=== PATIENT | female | born 1975 | race Caucasian/White ===

== ENCOUNTER 2025-04-20 09:23 | Outpatient (AMB) | payer SELFPAY ==
--- NOTE | 2025-04-20 09:38 | MHC.OFFVIS ---
Intake Visit Reasons: Follow Up Allergies No Known Allergies Allergy (Verified 02/24/25 16:30) Medication List - Last Reconciled 04/20/25 by Danny Hernandes MD bupropion HCl XL 150 mg PO DAILY escitalopram oxalate 20 mg PO DAILY propranolol 60 mg PO BID 90 days HPI Comments Details: ?50 yr old woman with h/o benign essential tremors for many years. Her tremors are under control. Doing very well with no limitations and no side effects. No functional impairment. NO side effects. History of onset of hand tremors around age 9 that have been slowly getting worse over the years. The tremors are increased by anxiety. She has had thyroid profile which was normal. ?She is also treated for depression and anxiety and panic attacks. She has been tried on stimulants for possible ADD without improvement. [facility] Medical History (Updated 04/20/25 @ 09:41 by Danny Hernandes MD) Anxiety Depression Benign essential tremor Review of Systems Const Details: Sleep:? Difficulty getting to sleep?denies.? Difficulty maintaining sleep?denies?.? Urge to move legs?denies.? Teeth grinding?denies.? Shouting or Kicking during sleep?denies.? Abnormal behavior during sleep?denies.? Excessive sleep?denies.? Snoring?denies.? Daytime sleepiness?denies.? ?? General/Constitutional:? Change in appetite?denies.? Chills?denies.? Fatigue?denies.? Fever?denies.? Weight gain?denies.? Weight loss?denies.? ?? Ophthalmologic:? Blurred vision?denies.? Diminished visual acuity?denies.? ?? ENT:? Stuffiness?denies.? Decreased hearing?denies.? Dry mouth?denies.? Ear pain?denies.? Nosebleed?denies.? Ringing in the ears?denies.? Sinus pain?denies.? Sore throat?denies.? Swollen glands?denies.? ?? Endocrine:? Cold intolerance?denies.? Excessive thirst?denies.? Frequent urination?denies.? Heat intolerance?denies.? ?? Respiratory:? Shortness of breath?denies.? Chest pain?denies.? Cough?denies.? ?? Breast:? Breast lump?denies.? Nipple discharge?denies.? ?? Cardiovascular:? Chest pain at rest?denies.? Chest pain with exertion?denies.? Claudication?denies.? Dizziness?denies.? Fluid accumulation in the legs?denies.? Irregular heartbeat?denies.? Palpitations?denies.? ?? Gastrointestinal:? Abdominal pain?denies.? Constipation?denies.? Diarrhea?denies.? Difficulty swallowing?denies.? Heartburn?denies.? Nausea?denies.? Rectal bleeding?denies.? ?? Hematology:? Easy bruising?denies.? Prolonged bleeding?denies.? ?? Genitourinary:? Frequent urination?denies.? Urgency?denies.? Incontinence?denies.? Erectile Dysfunction?denies.? ?? Musculoskeletal:? Neck pain?denies.? Back pain?denies.? Muscle aches?denies.? Painful joints?denies.? Sciatica?denies.? Weakness?denies.? ?? Podiatric:? Difficulty walking?denies.? Foot numbness?denies.? ?? Neurologic:? Difficulty swallowing?denies.? Balance difficulty?denies.? Coordination?normal.? Difficulty speaking?denies.? Dizziness?denies.? Fainting?denies.? Gait abnormality?denies.? Headache?denies.? Loss of strength?denies.? Loss of use of extremity?denies.? Low back pain?denies.? Memory loss?denies.? Seizures?denies.? Tics?denies.? Tingling/Numbness?denies.? Transient loss of vision?denies.? Tremor?admits.? ?? Psychiatric:? Anxiety?denies.? Auditory/visual hallucinations?denies.? Delusions?denies.? Depressed mood?denies.? Stressors?denies.? Substance abuse?denies.? Suicidal thoughts?denies.? ?? Physical Exam Neuro Other: Neurological: ? Abnormal neurological findings:?Minimal tremors of the extended upper extremities on sustained posture and finger to nose L>R..? Mental Status:?alert and oriented X 3,?Normal attention, orientation, memory and affect.? Cranial Nerves:?Pupils are equal, round and reactive to light. Fundoscopy shows normal disc bilaterally. External occular muscles are intact. Visual lunsford are full, no ptosis. Face is symmetrical, no facial weakness or droop. Facial sensations are normal. Tongue protrudes in midline. Palate elevates symmetrically. Shoulder shrugging is normal..? Motor Examination:?Normal muscle tone, bulk and strength,?No atrophy or fasciculations,?No drift of the extended upper extremities,?Deep tendon reflexes are 2+?,?Plantars are flexor?.? Straight Leg Raising:?90 degrees.? Sensory Exam:?Normal light touch, temperature, pinprick, vibration and joint-position sensations?,?Rhomberg sign is absent.? Coordination:?no ataxia,?no titubation,?[id number], [id number] test and rapid alternating movements were normal.? Gait Exam:?Within normal limits.? Cerebellar Signs:?[id number] and ihtk-[id number] is normal,?no dysdiadochokinesia?.? Extrapyramidal System:?No tremor, rigidity with normal facial expressions,?No bradykinesia, no bradyphrenia. Normal arm swing and posture. No propulsion or retropulsion.? Speech:?Normal,?no dysphasia or dysarthria..? Mini Mental Status Exam: ? Level of Consciousness:?Alert.? Orientation:?Knows correct year, month, date, day and season,?Knows correct city, county and state. Knows correct location and floor.? Registration:?Able to register 3 objects.? Attention:?Serial 7's performed accurately.? Recall:?Able to recall 3 out of 3 objects.? Language:?Normal spontaneous speech, fluency, repetition,naming, comprehension, reading and writing.? Total Score ?30/30.? General Examination: ? GENERAL APPEARANCE:?normal,?in no acute distress.? HEAD:?normocephalic,?atraumatic.? EYES:?sclera non-icteric,?conjunctiva clear.? EARS:?auditory canal clear,?tympanic membrane intact, clear.? NOSE:?no lesions.? ORAL CAVITY:?gums normal,?mucosa moist,?no lesions.? THROAT:?clear.? NECK/THYROID:?no cervical lymphadenopathy,?thyroid normal,?neck supple, full range of motion,?no carotid bruit.? SKIN:?no rashes,?no significant birthmarks.? HEART:?S1, S2 normal,?no murmurs.? LUNGS:?clear anteriorly and posteriorly.? CHEST:?no gross rib deformity,?clear to auscultation.? BACK:?normal exam of spine.? EXTREMITIES:?no edema.? PERIPHERAL PULSES:?normal.? PSYCH:?alert, oriented,?cognitive function intact,?cooperative with exam.? Assessment & Plan Assessment & Plan (1) Benign essential tremor: Code(s): G25.0 - Essential tremor Category: Medical (2) Anxiety: Code(s): F41.9 - Anxiety disorder, unspecified Category: Medical (3) Depression: Code(s): F32.A - Depression, unspecified Category: Medical Plan Continue current meds Medications: Refilled propranolol 60 mg PO BID 180 tabs 3RF 90 days Coding Level of Care Code Est Pt Level 4 (45891) Diagnoses Benign essential tremor G25.0 Anxiety F41.9 Depression F32.A
== END 2025-04-20 09:49 | disposition home or self-care (01) ==
PROVIDERS: Visit Provider Psychiatry & Neurology Neurology
DX: G25.0 Essential tremor (principal); F41.9 Anxiety disorder, unspecified; F32.A Depression, unspecified
CPT/HCPCS: 99214

== ENCOUNTER → 2025-04-20 09:23 | Outpatient (BNVA) | payer SELFPAY | PROVIDERS: Visit Provider Psychiatry & Neurology Neurology | DX: G25.0 Essential tremor (principal) | CPT/HCPCS: 99212 ==